=== PATIENT | female | born 1950 ===

== ENCOUNTER 2018-03-24 10:33 | Emergency (ER) | payer MEDICAID, MEDICARE, OTHER ==
[2018-03-24 11:05] VITALS: BMI 34.3
[2018-03-24 11:23] VITALS: RESP 18; TEMP 97.8
[2018-03-24 11:47] VITALS: BP 138/70; PULSE 70; O2SAT 98
--- NOTE | 2018-03-24 16:46 | ED PDOC ---
Arrival/HPI - General Chief Complaint: Cough, Cold, Congestion Time Seen by Provider: 03/24/18 11:15 Historian: Patient - History of Present Illness Narrative History of Present Illness (Text): 03/24/18 16:42 A 67 year old female, with no significant past medical history, presents to the emergency department for a complaint of 1 week duration sinus pressure. The patient confirms that she's had a positive sick contact. The patient denies fevers, chills, headache, dizziness, chest pain, shortness of breath, dyspnea on exertion, cough, abdominal pain, nausea, vomiting, diarrhea, back pain, neck pain, urinary/bowel changes, or any other complaint. Time/Duration: 1 week Symptom Onset: Sudden Symptom Course: Unchanged Activities at Onset: Rest, Light Context: Home Past Medical History - Provider Review Nursing Documentation Reviewed: Yes - Infectious Disease Hx of Infectious Diseases: None - Musculoskeletal/Rheumatological Hx Degenerative Joint Disease: Yes Hx Herniated Disk: Yes - Psychiatric Hx Substance Use: No - Surgical History Other/Comment: sinus surgery - Anesthesia Hx Anesthesia: Yes Hx Anesthesia Reactions: No Hx Malignant Hyperthermia: No Family/Social History - Physician Review Nursing Documentation Reviewed: Yes Family/Social History: No Known Family HX Smoking Status: Never Smoked Hx Alcohol Use: No Hx Substance Use: No Allergies/Home Meds Allergies/Adverse Reactions: Allergies No Known Allergies Allergy (Verified 03/24/18 11:05) Review of Systems - Physician Review All systems were reviewed & negative as marked: Yes - Review of Systems Constitutional: absent: Fevers, Night Sweats ENT: Sinus Congestion (Sinus pressure) Respiratory: absent: SOB, Cough Cardiovascular: absent: Chest Pain, V[place]AD[place]ES Gastrointestinal: absent: Abdominal Pain, Stool Changes, Diarrhea, Nausea, Vomiting Genitourinary Female: absent: Urine Output Changes Musculoskeletal: absent: Back Pain, Neck Pain Neurological: absent: Headache, Dizziness Physical Exam Vital Signs Reviewed: Yes Vital Signs Temp Pulse Resp BP Pulse Ox 03/24/18 11:46 70 18 138/70 98 03/24/18 10:33 97.8 F 86 18 150/86 97 Temperature: Afebrile Blood Pressure: Normal Pulse: Regular Respiratory Rate: Normal Appearance: Positive for: Well-Appearing, Non-Toxic, Comfortable Pain Distress: None Mental Status: Positive for: Alert and Oriented X 3 - Systems Exam Head: Present: Atraumatic, Normocephalic, Tenderness (Tenderness to bilateral maxillary sinuses) Pupils: Present: PERRL Extroacular Muscles: Present: EOMI Conjunctiva: Present: Normal Mouth: Present: Moist Mucous Membranes Neck: Present: Normal Range of Motion Respiratory/Chest: Present: Clear to Auscultation, Good Air Exchange. No: Respiratory Distress, Accessory Muscle Use Cardiovascular: Present: Regular Rate and Rhythm, Normal S1, S2. No: Murmurs Abdomen: No: Tenderness, Distention, Peritoneal Signs Back: Present: Normal Inspection Upper Extremity: Present: Normal Inspection. No: Cyanosis, Edema Lower Extremity: Present: Normal Inspection. No: Edema Neurological: Present: GCS=15, CN II-XII Intact, Speech Normal Skin: Present: Warm, Dry, Normal Color. No: Rashes Psychiatric: Present: Alert, Oriented x 3, Normal Insight, Normal Concentration Medical Decision Making ED Course and Treatment: 03/24/18 16:46 Impression: A 67 year old male presents to the emergency department for a complaint of 1 week duration sinus pressure. Plan: -- Reassess and disposition Progress Notes: - Scribe Statement The provider has reviewed the documentation as recorded by the Scribe Mendy Zhong Provider Scribe Attestation: All medical record entries made by the Scribe were at my direction and personally dictated by me. I have reviewed the chart and agree that the record accurately reflects my personal performance of the history, physical exam, medical decision making, and the department course for this patient. I have also personally directed, reviewed, and agree with the discharge instructions and disposition. Disposition/Present on Arrival - Present on Arrival Any Indicators Present on Arrival: No History of DVT/PE: No History of Uncontrolled Diabetes: No Urinary Catheter: No History of Decub. Ulcer: No History Surgical Site Infection Following: None - Disposition Have Diagnosis and Disposition been Completed?: Yes Diagnosis: Sinusitis Disposition: HOME/ ROUTINE Disposition Time: 11:30 Condition: GOOD Discharge Instructions (ExitCare): Sinusitis, Adult (DC) Additional Instructions: Thank you for letting us take care of you today. The emergency medical care you received today was directed at your acute symptoms. If you were prescribed any medication, please fill it and take as directed. It may take several days for your symptoms to resolve. Return to the Emergency Department if your symptoms worsen, do not improve, or if you have any other problems. Please contact your doctor or call one of the physicians/clinics you have been referred to that are listed on the Patient Visit Information form that is included in your discharge packet. Bring any paperwork you were given at discharge with you along with any medications you are taking to your follow up visit. Our treatment cannot replace ongoing medical care by a primary care provider (PCP) outside of the emergency department. Thank you for allowing the [facility] team to be part of your care today. Follow up with your primary care doctor in 3-5 days for re-evaluation and further management. Also, for a blood pressure check. Prescriptions: Amoxicillin/Clavulanate [Augmentin 875 MG-125 MG] 1 tab PO Q12 #14 tab [facility] - Follow up with primary Forms: [employer] (Congolese)
== END 2018-03-24 11:50 | disposition home or self-care (01) ==
LOC: ED 10:33
DX: J32.9 Chronic sinusitis, unspecified (principal)

== ENCOUNTER 2018-04-02 20:11 | Emergency (ER) | payer MEDICARE, OTHER ==
[2018-04-02 20:18] VITALS: RESP 18; TEMP 98.4; BMI 32.9
--- NOTE | 2018-04-02 20:45 | ED PDOC ---
Arrival/HPI - General Historian: Patient <LundJavon mcdonough - Last Filed: 04/02/18 21:25> <Daniel Suarez - Last Filed: 04/03/18 06:18> - General Chief Complaint: ENT Problem Time Seen by Provider: 04/02/18 20:12 - History of Present Illness Narrative History of Present Illness (Text): Patient is a 67 year old female with no significant past medical history who presents to the ED for evaluation and treatment of a sore throat, pain with swallowing, and difficulty swallowing. Patient states symptoms began approximately 3 days ago. Admits to sick contacts at home. States granddaughter has strep. It is important to note that she was diagnosed with sinusitis approximately 10 days ago and is s/p a course of augmentin. Denies fever, chills , headache, dizziness chest pain, SOB, abdominal pain, nausea, vomiting, diarrhea, constipation, and urinary symptoms. 04/02/18 20:40 (Javon Lund) Past Medical History - Provider Review Nursing Documentation Reviewed: Yes - Travel History Have you recently traveled outside [place] w/in the past 3 mons?: No - Infectious Disease Hx of Infectious Diseases: None - Musculoskeletal/Rheumatological Hx Degenerative Joint Disease: Yes Hx Herniated Disk: Yes - Psychiatric Hx Substance Use: No - Surgical History Hx Tonsillectomy: Yes Other/Comment: deviated septum. sinus sx - Anesthesia Hx Anesthesia: Yes Hx Anesthesia Reactions: No Hx Malignant Hyperthermia: No <Javon Lund - Last Filed: 04/02/18 21:25> Family/Social History - Physician Review Nursing Documentation Reviewed: Yes Family/Social History: Unknown Family HX Smoking Status: Never Smoked Hx Alcohol Use: No Hx Substance Use: No <Javon Lund - Last Filed: 04/02/18 21:25> Allergies/Home Meds <Javon Lund - Last Filed: 04/02/18 21:25> <Daniel Suarez - Last Filed: 04/03/18 06:18> Allergies/Adverse Reactions: Allergies No Known Allergies Allergy (Verified 03/24/18 11:05) Review of Systems - Physician Review All systems were reviewed & negative as marked: Yes - Review of Systems Constitutional: Normal Eyes: Normal ENT: Sore Throat Respiratory: Normal Cardiovascular: Normal Gastrointestinal: Normal Genitourinary Female: Normal Musculoskeletal: Normal Skin: Normal Neurological: Normal Endocrine: Normal Hemo/Lymphatic: Normal Psychiatric: Normal <Javon Lund - Last Filed: 04/02/18 21:25> Physical Exam Temperature: Afebrile Blood Pressure: Hypertensive Pulse: Regular Respiratory Rate: Normal Appearance: Positive for: Well-Appearing, Non-Toxic, Comfortable Pain Distress: None Mental Status: Positive for: Alert and Oriented X 3 - Systems Exam Head: Present: Atraumatic, Normocephalic Pupils: Present: PERRL Extroacular Muscles: Present: EOMI Conjunctiva: Present: Normal Mouth: Present: Moist Mucous Membranes Pharnyx: Present: EXUDATE. No: Uvular Deviation, Muffled/Hoarse Voice Nose (External): Present: Atraumatic Nose (Internal): Present: Normal Inspection Neck: No: Lymphadenopathy Respiratory/Chest: Present: Clear to Auscultation, Good Air Exchange Cardiovascular: Present: Regular Rate and Rhythm, Normal S1, S2 Abdomen: Present: Normal Bowel Sounds. No: Tenderness, Peritoneal Signs, Rebound, Guarding Upper Extremity: Present: Normal ROM Lower Extremity: Present: Normal ROM Neurological: Present: GCS=15, CN II-XII Intact, Speech Normal Skin: Present: Warm, Dry Psychiatric: Present: Alert, Oriented x 3, Normal Insight, Normal Concentration <Javon Lund - Last Filed: 04/02/18 21:25> Vital Signs Reviewed: Yes <Daniel Suarez - Last Filed: 04/03/18 06:18> Vital Signs Temp Pulse Resp BP Pulse Ox 04/02/18 21:45 75 18 145/82 100 04/02/18 20:18 98.4 F 84 18 151/87 H 96 Medical Decision Making <Javon Lund - Last Filed: 04/02/18 21:25> <Daniel Suarez - Last Filed: 04/03/18 06:18> ED Course and Treatment: Assessment and Plan: Patient is a 67 year old female with no significant past medical history who presents to the ED for evaluation and treatment of a sore throat, pain with swallowing, and difficulty swallowing. Exudative pharyngitis Odynophagia Dysphagia 04/02/18 20:48 - rapid strep test - acetamenophen - decadron 04/02/18 21:24 - rapid strep test negative (Javon Lund) 04/02/18 22:42 Angela Carlson is a 67 year old female who presents to the emergency department for a complaint sore throat, difficulty/painful swallowing. In agreement with resident note which contains more details about the patient. Patient was seen and evaluated with resident. Came up with plan and treatment together. 04/03/18 06:17 pt seen with resident radha dunbarat x 3 days. 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 strep neg. adivse outpt fu and return precautions (Daniel Suarez) - Lab Interpretations Lab Results: Lab Results 04/02/18 20:33: Grp A Beta Strep Ag Negative - Medication Orders Current Medication Orders: Discontinued Medications Acetaminophen (Tylenol 325mg Tab) 975 mg PO STAT STA Stop: 04/02/18 20:34 Last Admin: 04/02/18 20:45 Dose: Not Given Non-Admin Reason: Patient Refused Dexamethasone (Decadron) 10 mg PO STAT STA Stop: 04/02/18 20:34 Last Admin: 04/02/18 20:45 Dose: Not Given Non-Admin Reason: Patient Refused <Javon Lund - Last Filed: 04/02/18 21:25> - Scribe Statement The provider has reviewed the documentation as recorded by the Scribe <Daniel Suarez - Last Filed: 04/03/18 06:18> - Scribe Statement Mendy Zhong Provider Scribe Attestation: All medical record entries made by the Scribe were at my direction and personally dictated by me. I have reviewed the chart and agree that the record accurately reflects my personal performance of the history, physical exam, medical decision making, and the department course for this patient. I have also personally directed, reviewed, and agree with the discharge instructions and disposition. (Daniel Suarez) Disposition/Present on Arrival - Present on Arrival Any Indicators Present on Arrival: No History of DVT/PE: No History of Uncontrolled Diabetes: No Urinary Catheter: No History of Decub. Ulcer: No History Surgical Site Infection Following: None - Disposition Have Diagnosis and Disposition been Completed?: Yes Disposition Time: 21:24 <Javon Lund - Last Filed: 04/02/18 21:25> <Daniel Suarez - Last Filed: 04/03/18 06:18> - Disposition Diagnosis: Pharyngitis Disposition: HOME/ ROUTINE Condition: GOOD Additional Instructions: ANGELA CARLSON, thank you for letting us take care of you today. Your provider was Daniel Suarez DO and you were treated for THROAT PAIN. The emergency medical care you received today was directed at your acute symptoms. If you were prescribed any medication, please fill it and take as directed. It may take several days for your symptoms to resolve. Return to the Emergency Department if your symptoms worsen, do not improve, or if you have any other problems. Please contact your doctor or call one of the physicians/clinics you have been referred to that are listed on the Patient Visit Information form that is included in your discharge packet. Bring any paperwork you were given at discharge with you along with any medications you are taking to your follow up visit. Our treatment cannot replace ongoing medical care by a primary care provider outside of the emergency department. Thank you for allowing the [facility] team to be part of your care today. If you had an X-Ray or CT scan: A Radiologist will review the ED reading if any change in treatment is needed we will contact you. If you had a blood, urine, or wound culture: It will take several days for the results, if any change in treatment is needed we will contact you. If you had an STI test: It will take 48 hours for the results. Please call after 1 week if you have not heard back. You will be informed if cultures are positive. Forms: [employer] (Dominican)
[2018-04-02 21:53] VITALS: BP 145/82; PULSE 75; O2SAT 100
== END 2018-04-02 21:45 | disposition home or self-care (01) ==
LOC: ED 20:11
DX: J02.9 Acute pharyngitis, unspecified (principal)